=== PATIENT | male | born 1955 | race Caucasian/White ===

== ENCOUNTER 2016-12-06 14:44 | Emergency (ER) | payer BC ==
--- NOTE | 2016-12-06 15:43 | RAD ---
HISTORY: Penetrating trauma, right ring finger COMPARISONS: None VIEWS: 3, Frontal, lateral, and oblique views of the fourth digit of the right hand FINDINGS: BONE DENSITY: Normal. BONES: There is no displaced fracture. JOINTS: There is osteoarthritis of the interphalangeal joints ALIGNMENT: There is no dislocation. SOFT TISSUES: There is radiopaque foreign body in the soft tissues along the volar aspect of the distal phalanx of the first digit OTHER FINDINGS: None. IMPRESSION: 1. RADIOPAQUE FOREIGN BODY WITHIN THE SOFT TISSUES ALONG THE VOLAR ASPECT OF THE DISTAL PHALANX OF THE FIRST DIGIT. 2. OSTEOARTHRITIS. 3. NO ACUTE OSSEOUS INJURY. IF SYMPTOMS PERSIST, RECOMMEND REPEAT IMAGING
[2016-12-06] MEDS ORDERED: Lidocaine 1% MPF* 2 ML VIAL INJ ONE (16:58)
[2016-12-06] MEDS ORDERED: Lidocaine 1% INJ* 10 MG/ML 30 ML SDV ONE (17:05)
[2016-12-06 17:47] VITALS: BP 162/78
--- NOTE | 2016-12-07 18:53 | ED ---
Laceration/Wound HPI - HPI Summary HPI Summary: Patient presents with CC of ribbed nail going through the fourth finger. He denies pain, numbness, tingling or bleeding. Denies any other symptoms. The injury occurred while trying to nail something into the wall about 1 hour prior to arrival. He takes no medications, is UTD with tetanus 2 years ago. - History of Current Complaint Hx Obtained From: Patient Mechanism of Injury: Sharp/Blunt Trauma Onset/Duration: Sudden Onset Aggravating: Nothing Alleviating: Nothing Timing: Constant Onset Severity: Mild Current Severity: None Pain Intensity: 0 Pain Scale Used: 0-10 Numeric Associated Signs & Symptoms: Negative <Joyce Sandhu - Last Filed: 12/07/16 18:47> <Malou Penaloza - Last Filed: 12/08/16 07:38> - History of Current Complaint Stated Complaint: NAIL THRU FINGER Time Seen by Provider: 12/06/16 14:54 - Allergy/Home Medications Allergies/Adverse Reactions: Allergies Allergy/AdvReac Type Severity Reaction Status Date / Time Eggplant Allergy Severe Swelling Uncoded 10/14/13 03:21 Of Face,Lips,& Throat PMH/Surg Hx/FS Hx/Imm Hx Previously Healthy: Yes Endocrine/Hematology History: Denies: Hx Diabetes Cardiovascular History: Denies: Hx Hypertension, Hx Pacemaker/ICD History: Denies: Hx Renal Disease Sensory History: Denies: Hx Hearing Aid Psychiatric History: Denies: Hx Panic Disorder - Immunization History Date of Tetanus Vaccine: Unknown Hx Pertussis Vaccination: No Immunizations Up to Date: Unable to Obtain/Confirm Infectious Disease History: No Infectious Disease History: Denies: Traveled Outside the [place] in Last 30 Days - Social History Occupation: Employed Full-time Lives: With Family Alcohol Use: Occasionally Hx Substance Use: No Substance Use Type: Reports: None Hx Tobacco Use: Yes Smoking Status (MU): Current Every Day Smoker <Joyce Sandhu - Last Filed: 12/07/16 18:47> Review of Systems Constitutional: Negative Eyes: Negative Cardiovascular: Negative Respiratory: Negative Genitourinary: Negative Positive: no symptoms reported, see HPI Musculoskeletal: Negative Positive: Other - nail going through finger Psychological: Normal All Other Systems Reviewed And Are Negative: Yes <Joyce Sandhu - Last Filed: 12/07/16 18:47> Physical Exam Triage Information Reviewed: Yes Vital Signs On Initial Exam: Initial Vitals Temp Pulse Resp BP Pulse Ox 98.5 F 68 20 176/97 96 12/06/16 14:46 12/06/16 14:46 12/06/16 14:46 12/06/16 14:46 12/06/16 14:46 Vital Signs Reviewed: Yes Appearance: Positive: Well-Appearing, Well-Nourished Skin: Positive: Warm, Skin Color Reflects Adequate Perfusion, Other - nail through finger Head/Face: Positive: Normal Head/Face Inspection Eyes: Positive: Normal, EOMI, ADRIÁN, Conjunctiva Clear Neck: Positive: Supple, Nontender, No Lymphadenopathy Respiratory/Lung Sounds: Positive: Clear to Auscultation, Breath Sounds Present Cardiovascular: Positive: Normal, RRR, Pulses are Symmetrical in both Upper and Lower Extremities Bowel Sounds: Positive: Present Musculoskeletal: Positive: Normal, Strength/ROM Intact Neurological: Positive: Speech Normal Psychiatric: Positive: Normal, Affect/Mood Appropriate AVPU Assessment: Alert - Ángela Coma Scale Best Eye Response: 4 - Spontaneous Best Motor Response: 6 - Obeys Commands Best Verbal Response: 5 - Oriented Coma Scale Total: 15 <Joyce Sandhu - Last Filed: 12/07/16 18:47> Vital Signs On Initial Exam: Initial Vitals Temp Pulse Resp BP Pulse Ox 98.5 F 68 20 176/97 96 12/06/16 14:46 12/06/16 14:46 12/06/16 14:46 12/06/16 14:46 12/06/16 14:46 <Malou Penaloza - Last Filed: 12/08/16 07:38> Procedures - Procedure Summary Procedure Summary: Puncture wound of nail to the right fourth finger. Digital block performed with effect. Nail dislodged with needlenose pliers and forceps with effect. Minimal bleeding. Area was gauze wrapped and compression dressing applied. Wound through the finger measuring 2cm. <Joyce Sandhu - Last Filed: 12/07/16 18:47> Diagnostics - Vital Signs Vital Signs Temp Pulse Resp BP Pulse Ox 12/06/16 17:46 98.4 F 62 20 162/78 12/06/16 14:57 98.5 F 68 20 170/90 99 12/06/16 14:46 98.5 F 68 20 176/97 96 <Joyce Sandhu - Last Filed: 12/07/16 18:47> - Vital Signs Vital Signs Temp Pulse Resp BP Pulse Ox 12/06/16 17:46 98.4 F 62 20 162/78 12/06/16 14:57 98.5 F 68 20 170/90 99 12/06/16 14:46 98.5 F 68 20 176/97 96 <Malou Penaloza - Last Filed: 12/08/16 07:38> Laceration Repair Course/Dx - Course Course Of Treatment: Nail was dislodged using forceps and pliers after digital block was obtained with effect. Wound was dressed. Tetanus already UTD. Patient OK with discharge and Keflex prescribed (short course based on wound). - Differential Dx Differental Diagnoses: Avulsion, Laceration, Puncture Wound <Joyce Sandhu - Last Filed: 12/07/16 18:47> <Malou Penaloza - Last Filed: 12/08/16 07:38> - Clinical Impression Provider Diagnoses: Other foreign body or object entering through skin, initial encounter Discharge <Joyce Sandhu - Last Filed: 12/07/16 18:47> <Malou Penaloza - Last Filed: 12/08/16 07:38> - Discharge Plan Condition: Stable Disposition: HOME Prescriptions: Amoxicillin/Clavulanate TAB* [Augmentin TAB 500 mg*] 500 mg PO BID #10 tab Patient Education Materials: Soft Tissue Foreign Body (ED) Referrals: Javier Miller MD [Primary Care Provider] - Additional Instructions: Follow up with PCP as needed If you develop redness, streaks of red around the wound, swelling, abnormal drainage or you develop a fever - you need to come back to the ED right away. Attestation Statement User Type: Provider - I was available for consult. This patient was seen by the SAIMA. The patient was not presented to, seen by, or examined by me. -Kim <Malou Penaloza - Last Filed: 12/08/16 07:38>
== END 2016-12-06 17:46 | disposition home or self-care (01) ==
LOC: ED 14:44
DX: S61.244A Puncture wound with foreign body of right ring finger without damage to nail, initial encounter (principal); W45.0XXA Nail entering through skin, initial encounter; Y93.9 Activity, unspecified; Y92.9 Unspecified place or not applicable; F17.210 Nicotine dependence, cigarettes, uncomplicated; M19.90 Unspecified osteoarthritis, unspecified site
CPT/HCPCS: 73140; 96374; 99282; J2001

== ENCOUNTER → 2019-02-23 05:39 | Day surgery (SDC) | payer OTHER ==
[~2019-02-23 05:39] MED LIST: Atracurium* 10 MG/ML 10 ML VIAL ONE; Buffered Lidocaine 1% SYRIN* 1 ML/SYRINGE INTRADERM ONE; Bupivacaine 0.25% EPI 200,000* 30 ML SDV ONE; Bupivacaine 0.5%* 50 ML MDV VIAL ONE; Dexamethasone IV* 4 MG/ML 1 ML (4 MG) IV SLOW PU ONE; Dexamethasone IV* 4 MG/ML 1 ML (4 MG) ONE; DiMENhydriNATE IV* 50 MG/ML VIAL IV PUSH PRN; EPINEPHRINE 1 MG/ML 1 ML VIAL ONE; Famotidine IV* 10 MG/ML 2 ML (20 mg) IV ONE; Famotidine IV* 10 MG/ML 2 ML (20 mg) ONE; HYDROmorphone INJ1* 1 MG/ML SYRINGE IV PRN; Lactated Ringers 1000 ML Bag* 1,000 ML IV SCH; Lidocaine 1% w EPI 1:100,000* MDV 20 ML VIAL ONE; Lidocaine 2% PF * 5 ML VIAL ONE; Midazolam* 1 MG/ML 5 ML VIAL (5 MG) ONE; Naloxone* 0.4 MG/ML 1 ML VIAL IV PRN; Ondansetron INJ* 2 MG/ML VIAL IV PRN; Ondansetron INJ* 2 MG/ML VIAL ONE; Propofol* 10 MG/ML 20 ML BTL ONE; ROPIVACAINE 5 MG/ML 30 ML BTL (0.5%) ONE; Scopolamine 1.5 mg* PATCH TRANSDERM PRN; ceFAZolin 2 GM in NS PREMIX(*) 2 GM/100 ML BAG IVPB ONE; fentaNYL* 50 MCG/ML 2 ML VIAL (100 MCG VIAL) IV PRN; fentaNYL* 50 MCG/ML 2 ML VIAL (100 MCG VIAL) ONE; oxyCODONE/Acetamin 5/325 MG* TAB PO PRN
[2019-02-23 12:37] VITALS: BP 117/76
--- NOTE | 2019-02-25 02:11 | OP ---
OPERATIVE REPORT: DATE OF OPERATION: 02/23/19 DATE OF : 53 SURGEON: Alpesh Gatica MD WET MACHINE OPERATOR: VITA Light A physician marketing communications assistant was required for the length of the procedure for assistance with patient positi oning, instrumentation, and closure. ANESTHESIOLOGIST: Dr. Urrutia. ANESTHESIA: General anesthesia, regional interscalene block anesthesia. PRE-OP DIAGNOSES: 1. Left shoulder rotator cuff tendon tear. 2. Left shoulder subacromial impingement and bursitis. 3. Left shoulder acromioclavicular joint osteoarthritis. 4. Left shoulder medial biceps subluxation, likely biceps tendinosis. POST-OP DIAGNOSES: 1. Left shoulder rotator cuff tendon tear. 2. Left shoulder subacromial impingement and bursitis. 3. Left shoulder acromioclavicular joint osteoarthritis. 4. Left shoulder medial biceps subluxation and biceps tendinosis. PROCEDURES: 1. Left shoulder manipulation under anesthesia. 2. Left shoulder arthroscopic rotator cuff repair, supraspinatus, using double row repair. 3. Left shoulder arthroscopic subacromial decompression. 4. Left shoulder arthroscopic distal clavicle resection. 5. Left shoulder arthroscopic release of biceps tendon, long head. ANTIBIOTICS: 2 g Ancef. IV FLUIDS: See Anesthesia note. SKIN TO SKIN TIME: 129 minutes. SPECIMEN: None. IMPLANTS: Arthrex double loaded suture anchors, 5.5 mm in size x2. Arthrex double loaded suture anc hor 4.75 mm in size x1. Arthrex swivel lock anchor x1 with 1 free suture utilized of the 2 that it s tarted with. ESTIMATED BLOOD LOSS: Minimum. COMPLICATIONS: None. INDICATIONS FOR PROCEDURE: The patient injured himself on 12/30/18 and has had significant pain. Th e patient of note has a 1 pack per day smoking history for 30 years. The patient responded insuffici ently to nonoperative management and MRI showed a full-thickness rotator cuff tendon tear with some r etraction, supraspinatus. There is medial biceps subluxation concerning for at subscapularis tendon injury and possible infraspinatus tendon injury. We discussed treatment of biceps tendon and the patient preferred biceps tenotomy to biceps tenodesis . Discussed risks and potential complications of surgery. DESCRIPTION PROCEDURE: On preoperative holding, the patient signed over the consent. Operative extr emity was marked in preoperative holding. The patient was taken back to the operating room and place d supine on operating room table. Should be noted that still in preoperative holding the patient had a regional interscalene block performed by Anesthesia. On the table supine, the patient had general anesthesia induced. I performed a mini timeout at this point and performed an examination under anesthesia. The patient' s forward flexion was limited to 170 degrees passively. He had approximately 90 degrees of external a nd 70 degrees of internal rotation. I performed a manipulation under anesthesia, using safe techniqu e, and was able to obtain 180 degrees of forward flexion. There was palpable crackling, consistent w ith capsular tearing to obtain full forward flexion. The patient was next placed in the lateral decubitus position with the left shoulder up. Oliver bag estrada rdened. Axillary roll placed. All bony prominences padded longitudinal traction using 15 pounds in the appropriate amount of abduction and forward flexion. The patient was prepped and draped. Surgic al timeout, formal, performed. I placed a 30 cc of normal saline into the glenohumeral joint from posterior using a spinal needle. I established a posterior glenohumeral joint portal using standard technique. I started my diagnosti c arthroscopy of the glenohumeral joint. There was significant tearing of the biceps tendon visualize d intra-articular. It was also noted to be subluxed slightly medially. No loose bodies. Clear supr aspinatus tendon tear. I visualized the subscapularis tendon. It looked tendinotic, but there was no clear tear off of bone . I reviewed it in a variety of positions including humeral head, posterior translation, internal an d external rotation. There was no clear indication for a subscapularis tendon repair. No clear high -grade tear present. As well on exam preoperatively, the patient had had no pain or weakness with sub scapularis tendon testing. MRI had showed no definitive high-grade tear either. Because of the tear in the biceps tendon and its subluxation, I needed to treat the biceps. I entere d an arthroscopic scissors and cut the biceps tendon long head near its origin. Articular cartilage was in good condition. No focal defects. I next entered the subacromial space anteriorly and posteriorly with instruments and fluid. There wa s some bursitis. This was debrided with an arthroscopic shaver. Made lateral and then posterolateral portals under direct visualization. Brought an arthroscopic bur r in from lateral and flattened out the anterior aspect of the acromion. Next directed my work to the rotator cuff. Clear full-thickness tear with some retraction. It appea red to involve mostly the supraspinatus. No significant amount of infraspinatus. I made an anterola teral shoulder arthroscopy portal to assist with my work. I debrided the humeral head footprint usin g VAPR and arthroscopic travon. There was synovium overlying some of the rotator cuff and I debrided t his with arthroscopic shaver back to israel rotator cuff tendon tissue. Through superolateral poke holes, I placed 2 Arthrex 5.5 mm anchors each doubly loaded with suture ta pe. I placed both of these before then using an antegrade suture passer to pass horizontal mattress sutures. I passed all 4 of these pairs of sutures before tying any. When I went to tie one of the 2 pairs of sutures from the more anterior anchor, the suture tape tore. I suspect that this was becau se the tape was roughened up by the antegrade suture passer that we used. I switched to a different antegrade suture passer for the remainder of the case. Although, the rotator cuff tendon was brought excellently to bone using the 3 stitches in my medial r ow, I wanted to reinforce this given that 1 suture tape had torn. I therefore placed an intermediate anchor. This was not a lateral row anchor, but rather was a medial type row anchor just placed more lateral in the footprint. It was smaller. A 4.75 mm. I placed this and took 1 suture tape from th is anchor and placed it slightly more anterior than the anterior most stitches from the true medial r ow. Excellent cuff to bone. I next took 4 sutures from my 3 prior anchors and placed them in a lateral r ow anchor. This brought the tendon to bone excellently. Really increased the footprint brought to b one nicely. I then used 1 free suture from the lateral swivel lock anchor and placed it anterior bec ause there is a tiniest of dog ear present there. This really enhanced, continually the repair. Repair was visualized on variety of perspective and was stable to probing and movement of the humeral head. I next addressed the AC joint. I debrided synovitic tissue about the AC joint with a cautery device and then removed 8 mm of distal end of the clavicle with an arthroscopic bur. I removed instruments from subacromial space. Closed skin incisions with figure-of- eight and 12 sti tches using nylon 3.0 sutures. Xeroform, 4x4s, ABDs, foam tape. The patient was placed in a sling and abduction pillow. Cooling unit applied. The patient was to re ceive Percocet as needed for pain control postoperatively. A sling at all times day and night. Enco uraged to cut down or quit smoking. No physical therapy for at least 6 weeks postoperative. Wound c are instructions provided. The patient will follow in 10 to 14 days postoperatively in clinic with riddhi dangelo [id number]/[facility] #: [id number]
== END | disposition home or self-care (01) ==
LOC: OR 05:39
PROVIDERS: ATTEND Orthopaedic Surgery
DX: S46.012A Strain of muscle(s) and tendon(s) of the rotator cuff of left shoulder, initial encounter (principal); M75.42 Impingement syndrome of left shoulder; M75.52 Bursitis of left shoulder; M19.012 Primary osteoarthritis, left shoulder; M75.22 Bicipital tendinitis, left shoulder; F17.210 Nicotine dependence, cigarettes, uncomplicated; W17.89XA Other fall from one level to another, initial encounter; Y92.9 Unspecified place or not applicable; G89.18 Other acute postprocedural pain
CPT/HCPCS: C1713; J0690; J1100; J2250; J2405; J2704; J2795; J3010; J3490

== ENCOUNTER 2019-07-30 12:32 | Emergency (ER) | payer MEDICARE, OTHER ==
--- NOTE | 2019-07-30 12:42 | ED ---
Laceration/Wound HPI - HPI Summary HPI Summary: This patient is a 64 y/o male presenting [facility] c/o laceration to left thumb s /p trauma today. Patient reports he was working with a table saw when he cut his left thumb. Patient has mild pain to left thumb. He denies any other symptoms. Denies fever or chills. Patient states his bleeding is currently controlled. Patient is not anticoagulated. No pertinent PMHx. Home Medications Medication Instructions Recorded Confirmed Type Citalopram TAB* [Celexa TAB*] 40 mg PO DAILY 10/14/13 07/30/19 History Tamsulosin CAP* [Flomax CAP*] 0.4 mg PO DAILY 10/14/13 07/30/19 History buPROPion TAB* [Wellbutrin TAB*] 300 mg PO DAILY 11/08/16 07/30/19 History - History of Current Complaint Stated Complaint: FINGER LAC PER PT Time Seen by Provider: 07/30/19 12:37 Hx Obtained From: Patient Mechanism of Injury: Sharp/Blunt Trauma - sharp Onset/Duration: Sudden Onset, Still Present Aggravating: Nothing Alleviating: Nothing Timing: Constant Current Severity: Mild Pain Intensity: 2 - left thumb Pain Scale Used: 0-10 Numeric Associated Signs & Symptoms: Negative, Pain - Allergy/Home Medications Allergies/Adverse Reactions: Allergies Allergy/AdvReac Type Severity Reaction Status Date / Time No Known Allergies Allergy Verified 07/30/19 14:05 Home Medications: Home Medications Citalopram TAB* [Celexa TAB*] 40 mg PO DAILY 10/14/13 [History Confirmed ] Tamsulosin CAP* [Flomax CAP*] 0.4 mg PO DAILY 10/14/13 [History Confirmed ] buPROPion TAB* [Wellbutrin TAB*] 300 mg PO DAILY 11/08/16 [History Confirmed ] Cephalexin CAP* [Keflex CAP*] 500 mg PO QID #40 cap 07/30/19 [Rx] PMH/Surg Hx/FS Hx/Imm Hx Endocrine/Hematology History: Denies: Hx Diabetes Cardiovascular History: Denies: Hx Hypertension, Hx Pacemaker/ICD History: Reports: Other Problems/Disorders Denies: Hx Dialysis, Hx Renal Disease Musculoskeletal History: Reports: Other Musculoskeletal History - LEFT SHOULDER Sensory History: Denies: Hx Contacts or Glasses, Hx Hearing Aid Opthamlomology History: Denies: Hx Contacts or Glasses Psychiatric History: Reports: Hx Depression Denies: Hx Panic Disorder - Surgical History Hx Anesthesia Reactions: No - Immunization History Date of Tetanus Vaccine: Unknown Infectious Disease History: No Infectious Disease History: Denies: Traveled Outside the [place] in Last 30 Days - Family History Known Family History: Positive: Diabetes Negative: Cardiac Disease, Hypertension Family History: Negative FHx of stroke or CA. - Social History Alcohol Use: Weekly Hx Substance Use: No Substance Use Type: Reports: None Hx Tobacco Use: Yes Smoking Status (MU): Light Every Day Tobacco Smoker Have You Smoked in the Last Year: No Review of Systems Negative: Fever Cardiovascular: Negative Respiratory: Negative Gastrointestinal: Negative Skin: Other - POSITIVE: laceration on left thumb Neurological/Mental Status: Negative All Other Systems Reviewed And Are Negative: Yes Physical Exam - Summary Physical Exam Summary: VITAL SIGNS: Reviewed. GENERAL: Patient is a well-developed and nourished male who is lying comfortable in the stretcher. Patient is not in any acute respiratory distress. HEAD AND FACE: No signs of trauma. No ecchymosis, hematomas or skull depressions. No sinus tenderness. EYES: PERRLA, EOMI x 2, No injected conjunctiva, no nystagmus. EARS: Hearing grossly intact. Ear canals and tympanic membranes are within normal limits. MOUTH: Oropharynx within normal limits. NECK: Supple, trachea is midline, no adenopathy, no JVD, no carotid bruit, no c- spine tenderness, neck with full ROM. CHEST: Symmetric, no tenderness at palpation LUNGS: Clear to auscultation bilaterally. No wheezing or crackles. CVS: Regular rate and rhythm, S1 and S2 present, no murmurs or gallops appreciated. ABDOMEN: Soft, non-tender. No signs of distention. No rebound no guarding, and no masses palpated. Bowel sounds are normal. EXTREMITIES: FROM in all major joints, no edema, no cyanosis or clubbing. NEURO: Alert and oriented x 3. No acute neurological deficits. Speech is normal and follows commands. SKIN: Dry and warm. Two lacerations on the distal DIP of left thumb. One laceration on the most distal end is deep and about 2 cm. The second laceration on the distal end is somewhat superficial and also about 2 cm. There is a lot of contused tissue and missing tissue of the skin. Triage Information Reviewed: Yes Vital Signs On Initial Exam: Initial Vitals Temp Pulse Resp BP Pulse Ox 99.1 F 83 18 105/66 96 07/30/19 12:33 07/30/19 12:33 07/30/19 12:33 07/30/19 12:33 07/30/19 12:33 Vital Signs Reviewed: Yes Procedures - Sedation Patient Received Moderate/Deep Sedation with Procedure: No - Laceration/Wound Repair 1 Location: upper extremity - left thumb Description: Irregular Anesthesia: Digital, 1.0%, Lido - 3 CC Length, Depth and Shape: 2 cm in length Laceration/Wound Explored: clean Layer Closure?: No - approximated edges Diagnostics - Vital Signs Vital Signs Temp Pulse Resp BP Pulse Ox 07/30/19 12:33 99.1 F 83 18 105/66 96 - Laboratory Lab Statement: Any lab studies that have been ordered have been reviewed, and results considered in the medical decision making process. - Radiology Left thumb XR Radiology Interpretation Completed By: Radiologist Summary of Radiographic Findings: IMPRESSION: 1. The volar soft tissues of the distal first phalanx are lacerated and studded with punctate radiodense material. 2. Minimally displaced fracture of the distal phalanx. Dr. Aaron has reviewed this report. Re-Evaluation - Re-Evaluation First Eval Re-Evaluation Time: 13:44 Comment: Laceration repaired by approximating edges. Laceration Repair Course/Dx - Course Assessment/Plan: This patient is a 64 y/o male presenting to [facility] c/o laceration to left thumb s/p trauma today. Patient reports he was working with a table saw when he cut his left thumb. Patient has mild pain to left thumb. He denies any other symptoms. Denies fever or chills. Patient states his bleeding is currently controlled. Patient is not anticoagulated. No pertinent PMHx. Patients laceration was irrigated with normal saline. I approximated the edges of the lacerations. Patient was given Rocephin. Tetanus vaccine is up-to -date. X-ray of the thumb IMPRESSION: 1. The volar soft tissues of the distal first phalanx are lacerated and studded with punctate radiodense material. 2. Minimally displaced fracture of the distal phalanx. I discussed the findings and test results with Dr. Clark, orthopedist, and he agrees with management. Patient will be discharged home with follow-up from Dr. Clark tomorrow morning. He will be given a prescription for Keflex. - Clinical Impression Provider Diagnoses: Fracture of distal phalanx of left thumb - Physician Notifications Discussed Care Of Patient With: Eduardo Clark Time Discussed With Above Provider: 14:07 Instructed by Provider To: Other - Discussed the case with Dr. Clark, orthopedist, who agrees with management of patient care. Dr. Clark states patient will follow up at his office. Discharge ED - Sign-Out/Discharge Documenting (check all that apply): Patient Departure - Discharge home - Discharge Plan Condition: Stable Disposition: HOME Prescriptions: Cephalexin CAP* [Keflex CAP*] 500 mg PO QID #40 cap Patient Education Materials: Laceration (ED), Thumb Fracture (ED) Referrals: Javier Miller MD [Primary Care Provider] - Eduardo Clark MD [Medical Doctor] - Additional Instructions: FOLLOW UP WITH DR. CLARK, ORTHOPEDIST, TOMORROW. RETURN TO THE EMERGENCY DEPARTMENT FOR ANY WORSENING OR NEW SYMPTOMS. - Billing Disposition and Condition Condition: STABLE Disposition: Home - Attestation Statements Document Initiated by Scribe: Yes Documenting Scribe: Ivanna Lyons Provider For Whom Teena is Documenting (Include Credential): Neil Aaron MD Scribe Attestation: Ivanna Saldivar, scribed for Neil Aaron MD on 07/30/19 at 1741. Scribe Documentation Reviewed: Yes Provider Attestation: The documentation as recorded by the Ivanna martinez accurately reflects the service I personally performed and the decisions made by me, Neil Aaron MD Status of Scribe Document: Viewed
[2019-07-30] MEDS ORDERED: cefTRIAXone(*) 1 GM in NS 0.9% 50 ML* 50 ML IVPB ONE (14:06)
[2019-07-30 16:13] VITALS: BP 130/84
== END 2019-07-30 15:32 | disposition home or self-care (01) ==
LOC: ED 12:32
DX: S62.522B Displaced fracture of distal phalanx of left thumb, initial encounter for open fracture (principal); W29.8XXA Contact with other powered hand tools and household machinery, initial encounter; Y92.9 Unspecified place or not applicable; F32.9 Major depressive disorder, single episode, unspecified; Z79.899 Other long term (current) drug therapy; F17.210 Nicotine dependence, cigarettes, uncomplicated
CPT/HCPCS: 12001; 96365; 99282; J0696